=== PATIENT | male | born 2005 | race African-American/Black ===

== ENCOUNTER 2025-08-14 21:06 | Observation (INO) ==
[2025-08-14 21:17] VITALS: BMI 37.3
--- NOTE | 2025-08-14 22:25 | DR.GENAD ---
HPI Time Seen Time Seen by Provider: 08/14/25 21:10 PCP Primary Care Physician: chivo Complaint/Symptoms Chief Complaint Doctors Comments: 19-year-old male to ED from home POV. States he did not take his insulin today because he was out of needles complains of burning in his chest and nausea today. Chief Complaint:: pt ambulated to triage with complaint of not taking his insulin today because he was out of his needles. Pt complaint of throat burning chest hurting and nausea x today COVID-19 Coronavirus risk:travel/contact w/high risk person: No Has patient experienced Coronavirus symptoms: No Source History Provided: Patient Mode of Arrival Mode of Arrival: Ambulatory Timing Onset of Chief Complaint: 08/14/25 PMH PMH Past Medical History: Yes Past Medical History: Asthma, Diabetes and GERD Past Surgical History: No Surgical History: No History Family History History of Family Medical Conditions: Yes Family Medical History: Diabetes Mellitus and Hypertension Social History Does patient currently use any type of tobacco product: No Have you used tobacco products in the last 12 months: No Type of Tobacco Use: None Does any household member use tobacco: No Alcohol Use: Occasionally Do you use any recreational Drugs:: No Lives With: Family Lives Where: Home Travel Risk Coronavirus risk:travel/contact w/high risk person: No Has patient experienced Coronavirus symptoms: No Infectious screening In the last 2 months have you had wt loss of >10#?: NO Have you had fever, night sweats or hemotysis?: No Have you traveled outside the country in the last 6 months?: No Isolation: Standard ROS Review of Systems Constitutional: No Symptoms Reported Eyes: No Symptoms Reported ENTM: No Symptoms Reported Respiratoy: No Symptoms Reported Cardiovascular: No Symptoms Reported Gastrointestinal/Abdominal: Nausea Genitourinary: No Symptoms Reported Neurological: No Symptoms Reported Musculoskeletal: No Symptoms Reported Integumentary: No Symptoms Reported Hematologic/Lymphatic: No Symptoms Reported Endocrine: No Symptoms Reported Psychiatric: No Symptoms Reported All Other Systems: Reviewed and Negative PE Vital Signs Vitals: Vital Signs Temperature 98.1 F Pulse Rate 93 Respiratory Rate 18 Blood Pressure 152/83 O2 Sat by Pulse Oximetry 97 General Limitations: No Limitations General Appearance: Alert and In No Apparent Distress Head Head Exam: Normal Inspection Eyes Eye exam: Normal Appearance ENT ENT Exam: Normal Exam External Ear Exam: Normal External Inspection TM/Canal Exam: Bilateral: Normal Nose Exam: Normal Nose Exam Mouth Exam: Normal Inspection Throat Exam: Normal Inspection Neck Neck Exam: Normal Inspection Chest Chest Inspection: Normal Inspection Respiratory Respiratory Exam: Normal Lung Sounds Bilat Respiratory Exam: Bilateral: Clear to Auscultation Cardiovascular Cardiovascular Exam: Regular Rate and Normal Rhythm Abdominal Exam Abdominal Exam: Normal Inspection, Normal Bowel Sounds and Soft Extremities Extremities Exam: Normal Inspection Back Back Exam: Normal Inspection Neurologic Neurological Exam: Alert and Oriented X3 Psychiatric Psychiatric Exam: Normal Affect and Normal Mood Skin Skin Exam: Warm, Dry, Intact and Normal Color COURSE Treatment Treatment: . .Discussed with patient patient is newly diagnosed diabetic is only been taking insulin for couple of months. Sodium 127 glucose greater than 900. Discussed with Dr. Landeros for admission. ROR Labs Reviewed 08/14/25 22:14 08/14/25 22:14 Laboratory: WBC 4.7 X10^3/uL (3.6-10.0) 08/14/25 22:14 RBC 5.65 X10^6/uL (4.7-6.0) 08/14/25 22:14 Hgb 15.4 g/dL (13.5-18.0) 08/14/25 22:14 Hct 47.0 % (42.0-54.0) 08/14/25 22:14 MCV 83.2 fL (80.0-100.0) 08/14/25 22:14 MCH 27.3 pg (27.0-34.0) 08/14/25 22:14 MCHC 32.8 g/dL (33.0-35.0) L 08/14/25 22:14 RDW 14.0 % (11.6-16.5) 08/14/25 22:14 Plt Count 209 X10^3/uL (150.0-450.0) 08/14/25 22:14 MPV 9.1 fL (7.4-11.0) 08/14/25 22:14 Neut % (Auto) 59.4 % (42.0-75.0) 08/14/25 22:14 Lymph % (Auto) 31.5 % (21.0-51.0) 08/14/25 22:14 [place] % (Auto) 6.8 % (0.0-13.0) 08/14/25 22:14 Eos % (Auto) 1.8 % (0.9-2.9) 08/14/25 22:14 Baso % (Auto) 0.5 % (0.2-1.0) 08/14/25 22:14 Neut # (Auto) 2.8 x10^3/uL (2.2-4.8) 08/14/25 22:14 Lymph # (Auto) 1.5 X10^3/uL (1.3-2.9) 08/14/25 22:14 [place] # (Auto) 0.3 x10^3/uL (0.3-0.8) 08/14/25 22:14 Eos # (Auto) 0.1 x10^3/uL (0.0-0.2) 08/14/25 22:14 Baso # (Auto) 0.0 X10^3/uL (0.0-0.1) 08/14/25 22:14 Absolute Nucleated RBC 0.4 /100WBC 08/14/25 22:14 Sodium 127 mmol/L (136-145) L 08/14/25 22:14 Corrected Sodium 137 mmol/L (136-145) 08/14/25 22:14 Potassium 4.4 mmol/L (3.5-5.1) 08/14/25 22:14 Chloride 89 mmol/L (98-107) L 08/14/25 22:14 Carbon Dioxide 25.2 mmol/L (21-32) 08/14/25 22:14 BUN 9 mg/dL (7-18) 08/14/25 22:14 Creatinine 1.66 mg/dL (0.70-1.30) H 08/14/25 22:14 Est GFR (MDRD) Af Amer > 60 (>60) 08/14/25 22:14 Est GFR (MDRD) Non-Af 57 (>60) L 08/14/25 22:14 Glucose 938 mg/dL (65-99) H* 08/14/25 22:14 POC Glucose (mg/dL) > 600 mg/dL (65-99) 08/14/25 22:28 Calcium 8.8 mg/dL (8.5-10.1) 08/14/25 22:14 Corrected Calcium TNP 08/14/25 22:14 Total Bilirubin 0.50 mg/dL (0.2-1.0) 08/14/25 22:14 AST < 6 Units/L (15-37) L 08/14/25 22:14 ALT 10 Units/L (12-78) L 08/14/25 22:14 Alkaline Phosphatase 206 Units/L (75-270) 08/14/25 22:14 Total Protein 7.6 g/dL (6.4-8.2) 08/14/25 22:14 Albumin 3.6 g/dL (3.4-5.0) 08/14/25 22:14 Globulin 4.0 g/dL (2.5-4.5) 08/14/25 22:14 Albumin/Globulin Ratio 0.9 Ratio (1.1-2.1) L 08/14/25 22:14 Specimen Type Random urine 08/14/25 22:33 Urine Color Straw (YELLOW) 08/14/25 22:33 Urine Appearance Clear (CLEAR) 08/14/25 22:33 Urine pH 6.0 (5.0 - 8.0) 08/14/25 22:33 Ur Specific [place] 1.010 (1.000-1.030) 08/14/25 22:33 Urine Protein Negative (NEGATIVE) 08/14/25 22:33 Urine Glucose (UA) 4+ (NEGATIVE) 08/14/25 22:33 Urine Ketones Negative (NEGATIVE) 08/14/25 22:33 Urine Blood Negative (NEGATIVE) 08/14/25 22:33 Urine Nitrite Negative (NEGATIVE) 08/14/25 22:33 Urine Bilirubin Negative (NEGATIVE) 08/14/25 22:33 Urine Urobilinogen Normal (NORMAL) 08/14/25 22:33 Ur Leukocyte Esterase Negative (NEGATIVE) 08/14/25 22:33 Opioid Opioid Risk Tool Age (Luis Alberto box if 16-45): Yes History of Preadolescent Sexual Abuse: No Total: 1 Total Score Risk Category: Low Risk Copyright: [facility] predicting aberrant behaviors Discharge Plan Diagnosis Discharge Problem: Hyperglycemia, Type 2 diabetes mellitus Discharge Plan Patient Disposition: 09 ADMITTED INPATIENT Condition: Stable Prescriptions: No Action Humulin 70/30 U-100 KwikPen 100 unit/mL (70-30) insulin pen 25 unit subcut BID 30 Days Qty: 15 0RF losartan 50 mg tablet 50 mg PO DAILY 30 Days Qty: 30 0RF (DME) blood-glucose meter [OneTouch Verio Flex Start] Kit See Rx Instructions .Route Qty: 1 0RF Rx Instructions: As directed Health Concerns: Post Hospitalization: new medications and changes needed to prevent readmission or further decline. Pt educated and given instructions on all concerns. Plan of Treatment: Continue with present treatment and follow up plan. Pt is to keep follow up appointment as instructed and take medications as ordered. Follow ups/Referrals Follow ups/Referrals: Daniel Anderson MD [Primary Care Provider, MEDICAL] - 3 days Instructions Print Language: SINHALA
[2025-08-14 22:28] LABS: MEAN PLATELET VOLUME 9.1 fL (7.4-11.0); RED CELL DISTRIBUTION WIDTH 14.0 % (11.6-16.5)
[2025-08-14 22:34] LABS: COR NA(FOR HYPERGLY) 137 mmol/L (136-145); CREATININE 1.66 mg/dL (0.70-1.30); eGFR NON BLACK RACES 57 (>60)
[2025-08-14 22:41] LABS: BLOOD/HEMOGLOBIN,URINE NEGATIVE (NEGATIVE); LEUKOCYTE ESTERASE ,URINE NEGATIVE (NEGATIVE); NITRITES,URINE NEGATIVE (NEGATIVE)
[2025-08-14 22:43] LABS: APPEARANCE,URINE CLEAR (CLEAR)
[2025-08-14] MEDS: NS 1,000 ML IV 1,000 ML IV ONE (22:53)
[2025-08-14] MEDS: ZOFRAN INJ 4 MG VIAL IVP ONE (22:53)
[2025-08-14] MEDS: NovoLIN R (or HumuLIN R) IV STA (22:56)
[2025-08-14] MEDS ORDERED: TYLENOL 325 MG TAB PO PRN (23:36)
[2025-08-14] MEDS ORDERED: NovoLIN R (or HumuLIN R) SUBCUT PRN (23:36)
[2025-08-14] MEDS ORDERED: ULTRAM PO PRN (23:36)
--- NOTE | 2025-08-14 23:43 | DR.GENAD ---
HPI Time Seen Time Seen by Provider: 08/14/25 21:10 PCP Primary Care Physician: chivo Complaint/Symptoms Chief Complaint:: pt ambulated to triage with complaint of not taking his insulin today because he was out of his needles. Pt complaint of throat burning chest hurting and nausea x today COVID-19 Coronavirus risk:travel/contact w/high risk person: No Has patient experienced Coronavirus symptoms: No Source History Provided: Patient Mode of Arrival Mode of Arrival: Ambulatory Timing Onset of Chief Complaint: 08/14/25 PMH PMH Past Medical History: Yes Past Medical History: Asthma, Diabetes and GERD Past Surgical History: No Surgical History: No History Family History History of Family Medical Conditions: Yes Family Medical History: Diabetes Mellitus and Hypertension Social History Does patient currently use any type of tobacco product: No Have you used tobacco products in the last 12 months: No Type of Tobacco Use: None Does any household member use tobacco: No Alcohol Use: Occasionally Do you use any recreational Drugs:: No Lives With: Family Lives Where: Home Travel Risk Coronavirus risk:travel/contact w/high risk person: No Has patient experienced Coronavirus symptoms: No Infectious screening In the last 2 months have you had wt loss of >10#?: NO Have you had fever, night sweats or hemotysis?: No Have you traveled outside the country in the last 6 months?: No Isolation: Standard PE Vital Signs Vitals: Vital Signs Temperature 98.1 F Pulse Rate 93 Respiratory Rate 18 Blood Pressure 152/83 O2 Sat by Pulse Oximetry 97 ROR Labs Reviewed 08/14/25 22:14 08/14/25 22:14 Laboratory: WBC 4.7 X10^3/uL (3.6-10.0) 08/14/25 22:14 RBC 5.65 X10^6/uL (4.7-6.0) 08/14/25 22:14 Hgb 15.4 g/dL (13.5-18.0) 08/14/25 22:14 Hct 47.0 % (42.0-54.0) 08/14/25 22:14 MCV 83.2 fL (80.0-100.0) 08/14/25 22:14 MCH 27.3 pg (27.0-34.0) 08/14/25 22:14 MCHC 32.8 g/dL (33.0-35.0) L 08/14/25 22:14 RDW 14.0 % (11.6-16.5) 08/14/25 22:14 Plt Count 209 X10^3/uL (150.0-450.0) 08/14/25 22:14 MPV 9.1 fL (7.4-11.0) 08/14/25 22:14 Neut % (Auto) 59.4 % (42.0-75.0) 08/14/25 22:14 Lymph % (Auto) 31.5 % (21.0-51.0) 08/14/25 22:14 [place] % (Auto) 6.8 % (0.0-13.0) 08/14/25 22:14 Eos % (Auto) 1.8 % (0.9-2.9) 08/14/25 22:14 Baso % (Auto) 0.5 % (0.2-1.0) 08/14/25 22:14 Neut # (Auto) 2.8 x10^3/uL (2.2-4.8) 08/14/25 22:14 Lymph # (Auto) 1.5 X10^3/uL (1.3-2.9) 08/14/25 22:14 [place] # (Auto) 0.3 x10^3/uL (0.3-0.8) 08/14/25 22:14 Eos # (Auto) 0.1 x10^3/uL (0.0-0.2) 08/14/25 22:14 Baso # (Auto) 0.0 X10^3/uL (0.0-0.1) 08/14/25 22:14 Absolute Nucleated RBC 0.4 /100WBC 08/14/25 22:14 Sodium 127 mmol/L (136-145) L 08/14/25 22:14 Corrected Sodium 137 mmol/L (136-145) 08/14/25 22:14 Potassium 4.4 mmol/L (3.5-5.1) 08/14/25 22:14 Chloride 89 mmol/L (98-107) L 08/14/25 22:14 Carbon Dioxide 25.2 mmol/L (21-32) 08/14/25 22:14 BUN 9 mg/dL (7-18) 08/14/25 22:14 Creatinine 1.66 mg/dL (0.70-1.30) H 08/14/25 22:14 Est GFR (MDRD) Af Amer > 60 (>60) 08/14/25 22:14 Est GFR (MDRD) Non-Af 57 (>60) L 08/14/25 22:14 Glucose 938 mg/dL (65-99) H* 08/14/25 22:14 POC Glucose (mg/dL) > 600 mg/dL (65-99) 08/14/25 22:28 Calcium 8.8 mg/dL (8.5-10.1) 08/14/25 22:14 Corrected Calcium TNP 08/14/25 22:14 Total Bilirubin 0.50 mg/dL (0.2-1.0) 08/14/25 22:14 AST < 6 Units/L (15-37) L 08/14/25 22:14 ALT 10 Units/L (12-78) L 08/14/25 22:14 Alkaline Phosphatase 206 Units/L (75-270) 08/14/25 22:14 Total Protein 7.6 g/dL (6.4-8.2) 08/14/25 22:14 Albumin 3.6 g/dL (3.4-5.0) 08/14/25 22:14 Globulin 4.0 g/dL (2.5-4.5) 08/14/25 22:14 Albumin/Globulin Ratio 0.9 Ratio (1.1-2.1) L 08/14/25 22:14 Specimen Type Random urine 08/14/25 22:33 Urine Color Straw (YELLOW) 08/14/25 22:33 Urine Appearance Clear (CLEAR) 08/14/25 22:33 Urine pH 6.0 (5.0 - 8.0) 08/14/25 22:33 Ur Specific [place] 1.010 (1.000-1.030) 08/14/25 22:33 Urine Protein Negative (NEGATIVE) 08/14/25 22:33 Urine Glucose (UA) 4+ (NEGATIVE) 08/14/25 22:33 Urine Ketones Negative (NEGATIVE) 08/14/25 22:33 Urine Blood Negative (NEGATIVE) 08/14/25 22: Urine Nitrite Negative (NEGATIVE) 08/14/25 22:33 Urine Bilirubin Negative (NEGATIVE) 08/14/25 22:33 Urine Urobilinogen Normal (NORMAL) 08/14/25 22:33 Ur Leukocyte Esterase Negative (NEGATIVE) 08/14/25 22:33 Opioid Opioid Risk Tool Age (Luis Alberto box if 16-45): Yes History of Preadolescent Sexual Abuse: No Total: 1 Total Score Risk Category: Low Risk Copyright: [facility] predicting aberrant behaviors Discharge Plan Diagnosis Discharge Problem: Hyperglycemia Type 2 diabetes mellitus Qualifiers: Diabetes mellitus group home insulin use: with group home use Diabetes mellitus complication status: with other specified complication Qualified Code(s): E11.69 - Type 2 diabetes mellitus with other specified complication Discharge Plan Patient Disposition: ADMITTED INPATIENT Condition: Stable Prescriptions: No Action Humulin 70/30 U-100 KwikPen 100 unit/mL (70-30) insulin pen 25 unit subcut BID 30 Days Qty: 15 0RF losartan 50 mg tablet 50 mg PO DAILY 30 Days Qty: 30 0RF (DME) blood-glucose meter [OneTouch Verio Flex Start] Kit See Rx Instructions .Route Qty: 1 0RF Rx Instructions: As directed Health Concerns: Post Hospitalization: new medications and changes needed to prevent readmission or further decline. Pt educated and given instructions on all concerns. Plan of Treatment: Continue with present treatment and follow up plan. Pt is to keep follow up appointment as instructed and take medications as ordered. Orders to Discharge Patient Discharge Orders: Transfer (Routine); Ordered 08/14/25 Ordered By: Alexander Bullock Follow ups/Referrals Follow ups/Referrals: Daniel Anderson MD [Primary Care Provider, MEDICAL] - 3 days Instructions Print Language: CROATIAN
[2025-08-14] MEDS ORDERED: CONSULT PHARMACY - POTASSIUM & MAGNESIUM XX SCH (23:45)
[2025-08-15] MEDS: NORCO 5/325 MG TAB PO PRN (00:35)
[2025-08-15] MEDS ORDERED: TYLENOL 325 MG TAB PO PRN (00:42)
[2025-08-15] MEDS ORDERED: ULTRAM PO PRN (00:42)
[2025-08-15] MEDS ORDERED: NORCO 5/325 MG TAB PO PRN (00:42)
[2025-08-15] MEDS: NS 1,000 ML IV 1,000 ML IV SCH (01:46)
[2025-08-15 05:50] LABS: MEAN PLATELET VOLUME 8.9 fL (7.4-11.0); RED CELL DISTRIBUTION WIDTH 13.5 % (11.6-16.5)
[2025-08-15 06:09] LABS: COR CA(FOR HYPOALB) 9.3 mg/dL (8.5-10.1); COR NA(FOR HYPERGLY) 143 mmol/L (136-145); CREATININE 0.96 mg/dL (0.70-1.30); eGFR NON BLACK RACES > 60 (>60)
[2025-08-15] MEDS: HumuLIN 70/30 (NovoLIN 70/30) SC SCH (06:43)
[2025-08-15] MEDS ORDERED: CONSULT PHARMACY - POTASSIUM & MAGNESIUM XX SCH (07:00)
[2025-08-15] MEDS: MAG-OX TAB PO SCH (09:46)
[2025-08-15] MEDS: K-DUR TAB 20 MEQ PO ONE (09:47)
--- NOTE | 2025-08-15 10:33 | DR.H&P ---
H&P History & Physical for Day of: H&P Date: 08/15/25 Chief Complaint Chief Complaint: fatigue urinary frequency, headache History of Present Illness History of Present Illness: Patient is a 19-year-old male with a history of diabetes mellitus. He states that for the past past 2 months he has not been taking his insulin. He reports gradually becoming more weak and fatigued. He went to the ER and was noted to have severe hyperglycemia. Labs/imaging: WBC 6.1, hemoglobin 14.5, platelets 213, sodium 137, potassium 3.5, creatinine 0.96, glucose 368, patient was admitted for Hyperosmolar hyperglycemic state. He was started on IV fluids and was given insulin. This morning his glucose levels are still elevated but significantly improved. Will restart home medications and monitor blood glucose today. Will adjust insulin accordingly. Will also get A1c. Diabetic diet. Otherwise continue with current treatment plan. Continue closely monitor and follow-up labs/imaging. Past Medical History Past Medical History: Asthma, Diabetes and GERD Past Surgical History Surgical History: No History Family History Family Medical History: Diabetes Mellitus and Hypertension Social History Does patient currently use any type of tobacco product: No Have you used tobacco products in the last 12 months: No Type of Tobacco Use: None Does any household member use tobacco: No Alcohol Use: Occasionally Drug Use: None Allergies Allergies Allergy/AdvReac Type Severity Reaction Status Date / Time catfish Allergy Unknown Uncoded 04/21/25 01:56 Labs 08/15/25 05:07 08/15/25 05:07 Labs: Laboratory WBC 6.1 X10^3/uL (3.6-10.0) 08/15/25 05:07 RBC 5.31 X10^6/uL (4.7-6.0) 08/15/25 05:07 Hgb 14.5 g/dL (13.5-18.0) 08/15/25 05:07 Hct 42.4 % (42.0-54.0) 08/15/25 05:07 MCV 79.9 fL (80.0-100.0) L 08/15/25 05:07 MCH 27.3 pg (27.0-34.0) 08/15/25 05:07 MCHC 34.1 g/dL (33.0-35.0) 08/15/25 05:07 RDW 13.5 % (11.6-16.5) 08/15/25 05:07 Plt Count 213 X10^3/uL (150.0-450.0) 08/15/25 05:07 MPV 8.9 fL (7.4-11.0) 08/15/25 05:07 Neut % (Auto) 37.6 % (42.0-75.0) L 08/15/25 05:07 Lymph % (Auto) 50.5 % (21.0-51.0) 08/15/25 05:07 [place] % (Auto) 8.4 % (0.0-13.0) 08/15/25 05:07 Eos % (Auto) 3.0 % (0.9-2.9) H 08/15/25 05:07 Baso % (Auto) 0.5 % (0.2-1.0) 08/15/25 05:07 Neut # (Auto) 2.3 x10^3/uL (2.2-4.8) 08/15/25 05:07 Lymph # (Auto) 3.1 X10^3/uL (1.3-2.9) H 08/15/25 05:07 [place] # (Auto) 0.5 x10^3/uL (0.3-0.8) 08/15/25 05:07 Eos # (Auto) 0.2 x10^3/uL (0.0-0.2) 08/15/25 05:07 Baso # (Auto) 0.0 X10^3/uL (0.0-0.1) 08/15/25 05:07 Absolute Nucleated RBC 0.2 /100WBC 08/15/25 05:07 Sodium 137 mmol/L (136-145) 08/15/25 05:07 Corrected Sodium 143 mmol/L (136-145) 08/15/25 05:07 Potassium 3.5 mmol/L (3.5-5.1) 08/15/25 05:07 Chloride 100 mmol/L (98-107) 08/15/25 05:07 Carbon Dioxide 26.5 mmol/L (21-32) 08/15/25 05:07 BUN 9 mg/dL (7-18) 08/15/25 05:07 Creatinine 0.96 mg/dL (0.70-1.30) 08/15/25 05:07 Est GFR (MDRD) Af Amer > 60 (>60) 08/15/25 05:07 Est GFR (MDRD) Non-Af > 60 (>60) 08/15/25 05:07 Glucose 368 mg/dL (65-99) H 08/15/25 05:07 POC Glucose (mg/dL) 329 mg/dL (65-99) H 08/15/25 05:59 Hemoglobin A1c > 14.0 % 08/15/25 05:07 Calcium 8.7 mg/dL (8.5-10.1) 08/15/25 05:07 Corrected Calcium 9.3 mg/dL (8.5-10.1) 08/15/25 05:07 Magnesium 1.8 mg/dL (2.0-2.9) L 08/15/25 05:07 Total Bilirubin 0.50 mg/dL (0.2-1.0) 08/15/25 05:07 AST < 6 Units/L (15-37) L 08/15/25 05:07 ALT 10 Units/L (12-78) L 08/15/25 05:07 Alkaline Phosphatase 177 Units/L (75-270) 08/15/25 05:07 Total Protein 6.9 g/dL (6.4-8.2) 08/15/25 05:07 Albumin 3.3 g/dL (3.4-5.0) L 08/15/25 05:07 Globulin 3.6 g/dL (2.5-4.5) 08/15/25 05:07 Albumin/Globulin Ratio 0.9 Ratio (1.1-2.1) L 08/15/25 05:07 Specimen Type Random urine 08/14/25 22:33 Urine Color Straw (YELLOW) 08/14/25 22: Urine Appearance Clear (CLEAR) 08/14/25 22: Urine pH 6.0 (5.0 - 8.0) 08/14/25 22:33 Ur Specific [place] 1.010 (1.000-1.030) 08/14/25 22:33 Urine Protein Negative (NEGATIVE) 08/14/25 22: Urine Glucose (UA) 4+ (NEGATIVE) 08/14/25 22: Urine Ketones Negative (NEGATIVE) 08/14/25 22:33 Urine Blood Negative (NEGATIVE) 08/14/25 22:33 Urine Nitrite Negative (NEGATIVE) 08/14/25 22:33 Urine Bilirubin Negative (NEGATIVE) 08/14/25 22:33 Urine Acetone Small (NEGATIVE) 08/14/25 22:33 Urine Urobilinogen Normal (NORMAL) 08/14/25 22:33 Ur Leukocyte Esterase Negative (NEGATIVE) 08/14/25 22:33 Review of Systems Constitutional: Weakness Eyes: No Symptoms Reported ENT: No Symptoms Reported Respiratory: No Symptoms Reported Cardiovascular: No Symptoms Reported Gastrointestinal: No Symptoms Reported Genitourinary: No Symptoms Reported Musculoskeletal: No Symptoms Reported Skin: No Symptoms Reported Neurological: No Symptoms Reported Physical Exam Vital Signs: Vital Signs Temperature 97.7 F Temperature 98.1 F Pulse Rate [Right Radial] 77 Pulse Rate [Right Radial] 67 Respiratory Rate 19 Respiratory Rate 18 Blood Pressure [Left Arm] 146/92 Blood Pressure [Left Arm] 136/71 O2 Sat by Pulse Oximetry 95 O2 Sat by Pulse Oximetry 98 Oriented: Normal Eyes: Normal Ear: Normal Nose: Normal Throat: Normal Respiratory: Clear Throughout Cardiovascular: Normal : Normal Auscultation: Bowel Sounds: Normal Palpation: Normal Tenderness: Normal Skin: Normal Musculoskeletal: Normal Psychiatric: Normal Mood Description: Calm and Appropriate Affect: Normal Speech Pattern: Clear and Appropriate Assessment/Plan (1) Type 2 diabetes mellitus with hyperglycemia: Qualifiers: Diabetes mellitus assisted insulin use: without assisted use Q ualified Code(s): E11.65 - Type 2 diabetes mellitus with hyperglycemia Status: Acute (2) Hyperglycemia: Status: Acute (3) HTN (hypertension): Qualifiers: Hypertension type: primary hypertension Qualified Code(s): I10 - Essential (primary) hypertension Status: Acute (4) Dehydration: Status: Acute (5) Hyperosmolar hyperglycemic state (HHS): Status: Acute Review H&P Reviewed: Yes Patient was examined?: Yes
[2025-08-15] MEDS: NovoLIN R (or HumuLIN R) SUBCUT PRN (12:21)
[2025-08-15] MEDS: SNACK - Diabetic Appropriate PO SCH (19:59)
[2025-08-15] MEDS ORDERED: SNACK - Diabetic Appropriate PO SCH ×2 (20:00)
[2025-08-16 06:12] LABS: MEAN PLATELET VOLUME 9.1 fL (7.4-11.0); RED CELL DISTRIBUTION WIDTH 13.8 % (11.6-16.5)
[2025-08-16 06:33] LABS: COR CA(FOR HYPOALB) 9.1 mg/dL (8.5-10.1); COR NA(FOR HYPERGLY) 142 mmol/L (136-145); CREATININE 0.96 mg/dL (0.70-1.30); eGFR NON BLACK RACES > 60 (>60)
[2025-08-16] MEDS ORDERED: CONSULT PHARMACY - POTASSIUM & MAGNESIUM XX SCH (08:00)
[2025-08-16 08:14] VITALS: BP 132/69; PULSE 72; RESP 20; TEMP 97.7; O2SAT 99
[2025-08-16] MEDS: NS + KCL 20 MEQ/L 1,000 ML IV SCH (09:04)
--- NOTE | 2025-08-20 16:34 | W.DIS.FURT ---
Summary of Discharge Discharge Summary of Date Date of Exam: 08/16/25 Admission Date Date of Admission: 08/14/25 Admission Diagnosis Patient Problems (Updated 08/14/25 @ 23:35 by Alexander Bullock) Hyperglycemia (Acute) R73.9 Type 2 diabetes mellitus (Acute) E11.9 Medications: NPH 70/30: 25u BID A1c:04/21/25:12.1 Hospital Course: Patient is a 19-year-old male with a history of diabetes mellitus admitted for Hyperosmolar hyperglycemic state after not taking his insulin for past 2 months. His hospital/treatment course included IV fluids and was given insulin. His insulin was adjusted and he was educated on how important it is for him to be monitoring his glucose levels and taking his medications. A1c >14. He was discharged in stable condition. His insulin was increased to 30 units twice a day of the 7030. He was also prescribed short acting insulin and given instructions on sliding scale. He will also be referred to endocrinology-Dr Hart in [place]. Instructed follow-up with his PCP in 1 week. Vital Signs: Vital Signs (72 hours) 08/14/25 21:07 08/15/25 00:00 08/15/25 00:20 Temperature 98.1 F 98.2 F Pulse Rate 93 H Pulse Rate [Right Radial] 90 72 Respiratory Rate 18 18 18 Blood Pressure 152/83 Blood Pressure [Left Arm] 138/90 132/83 O2 Sat by Pulse Oximetry 97 97 94 L Oxygen Delivery Method Room Air Room Air 08/15/25 00:21 08/15/25 00:35 08/15/25 00:40 Temperature 98.2 F Pulse Rate Pulse Rate [Right Radial] 90 Respiratory Rate 18 20 Blood Pressure Blood Pressure [Left Arm] 138/90 O2 Sat by Pulse Oximetry 97 Oxygen Delivery Method Room Air Room Air 08/15/25 01:35 08/15/25 04:00 08/15/25 07:00 Temperature 98.1 F Pulse Rate Pulse Rate [Right Radial] 67 Respiratory Rate 20 18 Blood Pressure Blood Pressure [Left Arm] 136/71 O2 Sat by Pulse Oximetry 98 Oxygen Delivery Method Room Air 08/15/25 07:43 08/15/25 12:00 08/15/25 16:00 Temperature 97.7 F 98.2 F 98 F Pulse Rate Pulse Rate [Right Radial] 77 73 80 Respiratory Rate 19 20 19 Blood Pressure Blood Pressure [Left Arm] 146/92 155/86 135/97 O2 Sat by Pulse Oximetry 95 97 97 Oxygen Delivery Method 08/15/25 19:00 08/15/25 20:00 08/16/25 00:00 Temperature 98.7 F 97.7 F Pulse Rate Pulse Rate [Right Radial] 94 H 68 Respiratory Rate 18 18 Blood Pressure Blood Pressure [Left Arm] 134/77 137/80 O2 Sat by Pulse Oximetry 98 98 Oxygen Delivery Method Room Air Room Air Room Air 08/16/25 04:00 08/16/25 08:00 08/16/25 09:08 Temperature 98.4 F 97.7 F Pulse Rate Pulse Rate [Right Radial] 59 L 72 Respiratory Rate 18 20 Blood Pressure Blood Pressure [Left Arm] 135/60 132/69 O2 Sat by Pulse Oximetry 98 99 Oxygen Delivery Method Room Air Room Air Room Air Labs: Laboratory Last Values WBC 6.2 X10^3/uL (3.6-10.0) 08/16/25 05:11 RBC 5.25 X10^6/uL (4.7-6.0) 08/16/25 05:11 Hgb 14.4 g/dL (13.5-18.0) 08/16/25 05:11 Hct 41.9 % (42.0-54.0) L 08/16/25 05:11 MCV 79.9 fL (80.0-100.0) L 08/16/25 05:11 MCH 27.5 pg (27.0-34.0) 08/16/25 05:11 MCHC 34.4 g/dL (33.0-35.0) 08/16/25 05:11 RDW 13.8 % (11.6-16.5) 08/16/25 05:11 Plt Count 191 X10^3/uL (150.0-450.0) 08/16/25 05:11 MPV 9.1 fL (7.4-11.0) 08/16/25 05:11 Neut % (Auto) 42.7 % (42.0-75.0) 08/16/25 05:11 Lymph % (Auto) 49.0 % (21.0-51.0) 08/16/25 05:11 [place] % (Auto) 5.0 % (0.0-13.0) 08/16/25 05:11 Eos % (Auto) 2.5 % (0.9-2.9) 08/16/25 05:11 Baso % (Auto) 0.8 % (0.2-1.0) 08/16/25 05:11 Neut # (Auto) 2.6 x10^3/uL (2.2-4.8) 08/16/25 05:11 Lymph # (Auto) 3.0 X10^3/uL (1.3-2.9) H 08/16/25 05:11 [place] # (Auto) 0.3 x10^3/uL (0.3-0.8) 08/16/25 05:11 Eos # (Auto) 0.2 x10^3/uL (0.0-0.2) 08/16/25 05:11 Baso # (Auto) 0.0 X10^3/uL (0.0-0.1) 08/16/25 05:11 Absolute Nucleated RBC 0.1 /100WBC 08/16/25 05:11 Sodium 138 mmol/L (136-145) 08/16/25 05:11 Corrected Sodium 142 mmol/L (136-145) 08/16/25 05:11 Potassium 3.4 mmol/L (3.5-5.1) L 08/16/25 05:11 Chloride 102 mmol/L (98-107) 08/16/25 05:11 Carbon Dioxide 25.5 mmol/L (21-32) 08/16/25 05:11 BUN 11 mg/dL (7-18) 08/16/25 05:11 Creatinine 0.96 mg/dL (0.70-1.30) 08/16/25 05:11 Est GFR (MDRD) Af Amer > 60 (>60) 08/16/25 05:11 Est GFR (MDRD) Non-Af > 60 (>60) 08/16/25 05:11 Glucose 275 mg/dL (65-99) H 08/16/25 05:11 POC Glucose (mg/dL) 253 mg/dL (65-99) H 08/16/25 05:24 Hemoglobin A1c > 14.0 % 08/15/25 05:07 Calcium 8.2 mg/dL (8.5-10.1) L 08/16/25 05:11 Corrected Calcium 9.1 mg/dL (8.5-10.1) 08/16/25 05:11 Magnesium 1.9 mg/dL (2.0-2.9) L 08/16/25 05:11 Total Bilirubin 0.30 mg/dL (0.2-1.0) 08/16/25 05:11 AST < 6 Units/L (15-37) L 08/16/25 05:11 ALT 11 Units/L (12-78) L 08/16/25 05:11 Alkaline Phosphatase 150 Units/L (75-270) 08/16/25 05:11 Total Protein 6.1 g/dL (6.4-8.2) L 08/16/25 05:11 Albumin 2.9 g/dL (3.4-5.0) L 08/16/25 05:11 Globulin 3.2 g/dL (2.5-4.5) 08/16/25 05:11 Albumin/Globulin Ratio 0.9 Ratio (1.1-2.1) L 08/16/25 05:11 Specimen Type Random urine 08/14/25 22:33 Urine Color Straw (YELLOW) 08/14/25 22:33 Urine Appearance Clear (CLEAR) 08/14/25 22:33 Urine pH 6.0 (5.0 - 8.0) 08/14/25 22:33 Ur Specific [place] 1.010 (1.000-1.030) 08/14/25 22:33 Urine Protein Negative (NEGATIVE) 08/14/25 22:33 Urine Glucose (UA) 4+ (NEGATIVE) 08/14/25 22:33 Urine Ketones Negative (NEGATIVE) 08/14/25 22:33 Urine Blood Negative (NEGATIVE) 08/14/25 22:33 Urine Nitrite Negative (NEGATIVE) 08/14/25 22:33 Urine Bilirubin Negative (NEGATIVE) 08/14/25 22: Urine Acetone Small (NEGATIVE) 08/14/25 22:33 Urine Urobilinogen Normal (NORMAL) 08/14/25 22:33 Ur Leukocyte Esterase Negative (NEGATIVE) 08/14/25 22:33 Reason For Visit: HYPERGLYCEMIA Discharge Diagnosis All Active Problems (Updated 08/14/25 @ 23:35 by Alexander Bullock) Hyperglycemia (Acute) Type 2 diabetes mellitus with hyperglycemia (Acute) Morbid obesity (Acute) HTN (hypertension) (Acute) Dehydration (Acute) Hyperosmolar hyperglycemic state (HHS) (Acute) Nausea and vomiting in adult patient (Acute) Gastritis (Acute) GERD (gastroesophageal reflux disease) (Acute) Laceration (Acute) Rectal bleeding (Acute) Hemorrhoid (Acute) Laceration (Acute) Right knee pain (Acute) Right shoulder pain (Acute) Low back strain (Acute) Routine sports physical exam (Acute) COVID-19 (Acute) Type 2 diabetes mellitus (Acute) Prediabetes (Acute) Obesity (Acute) Annual physical exam (Acute) Plan of Treatment: Continue with present treatment and follow up plan. Pt is to keep follow up appointment as instructed and take medications as ordered. Discharge Medications Discharge Medications: catfish Allergy (Unknown, Uncoded 04/21/25 01:56) Discharge Plan Discharge Plan Hospital Course: Patient is a 19-year-old male with a history of diabetes mellitus admitted for Hyperosmolar hyperglycemic state after not taking his insulin for past 2 months. His hospital/treatment course included IV fluids and was given insulin. His insulin was adjusted and he was educated on how important it is for him to be monitoring his glucose levels and taking his medications. A1c >14. He was discharged in stable condition. His insulin was increased to 30 units twice a day of the 7030. He was also prescribed short acting insulin and given instructions on sliding scale. He will also be referred to endocrinology-Dr Hart in [place]. Instructed follow-up with his PCP in 1 week. Patient Disposition: 01 HOME, SELF-CARE Condition: Stable Health Concerns: Post Hospitalization: new medications and changes needed to prevent readmission or further decline. Pt educated and given instructions on all concerns. Care Plan Goals: Problem: Altered nutrition Goal: Nutrition deficit will be minimized or prevented. Instructions: Follow provided instructions. Follow up with primary physician as directed. Contact primary care physician or report to the closest Emergency Room if condition worsens. Plan of Treatment: Continue with present treatment and follow up plan. Pt is to keep follow up appointment as instructed and take medications as ordered. Prescriptions: New insulin asp prt-insulin aspart 100 unit/mL (70-30) Insulin Pen 30 unit SUBCUT BID Qty: 20 0RF Discontinued Humulin 70/30 U-100 KwikPen 100 unit/mL (70-30) insulin pen 25 unit subcut BID 30 Days Qty: 15 0RF No Action losartan 50 mg tablet 50 mg PO DAILY 30 Days Qty: 30 0RF (DME) pen needle, diabetic [Easy Comfort Pen [place]] 33 gauge x 1/4" needle See Rx Instructions .Route Qty: 50 0RF Rx Instructions: As directed insulin asp prt-insulin aspart [Novolog Mix 70-30FlexPen U-100] 100 unit/mL (70-30) insulin pen 15 unit subcut TID-QID Qty: 15 0RF Rx Instructions: Take with meals. Use sliding scale dose for correct units to inject. (DME) blood-glucose meter [OneTouch Verio Flex Start] Kit See Rx Instructions .Route Qty: 1 0RF Rx Instructions: As directed Orders to Discharge Patient Discharge Orders: Discharge (Routine); Ordered 08/16/25 Ordered By: Danile Anderson Follow ups/Referrals Follow ups/Referrals: Dr Hart [Other] - 1 WEEK Referral Note: Office will call patient with appoitment Daniel Anderson MD [Primary Care Provider, MEDICAL] - 08/22/25 1:00 pm Instructions Instructions: Type 2 Diabetes Mellitus, Diagnosis, Adult, Hyperglycemia, Blood Glucose Monitoring, Adult Stand Alone Forms: Find Help Web Site, Post Hospital Follow Up Care Print Language: [place]
== END 2025-08-16 11:41 | disposition home or self-care (01) ==
LOC: ER 21:06 → MED/SURG 21:06
PROVIDERS: ADMIT Internal Medicine; ATTEND Family Medicine
DX: Z79.4 Long term (current) use of insulin; Z91.148 Patient's other noncompliance with medication regimen for other reason; E83.42 Hypomagnesemia; I10 Essential (primary) hypertension; R94.4 Abnormal results of kidney function studies; R53.83 Other fatigue; E11.65 Type 2 diabetes mellitus with hyperglycemia; E11.00 Type 2 diabetes mellitus with hyperosmolarity without nonketotic hyperglycemic-hyperosmolar coma (NKHHC); E86.0 Dehydration; K21.9 Gastro-esophageal reflux disease without esophagitis